=== PATIENT | female | born 1980 | race African-American/Black ===

== ENCOUNTER 2017-05-25 10:03 | Inpatient (IN) ==
[2017-05-25] MEDS ORDERED: OXYTOCIN/LR 20 UNIT/1,000 ML BAG IV ONE ×2 (10:25→15:30)
[2017-05-25] MEDS: LACTATED RINGERS 1,000 ML IV SCH ×4 (10:34→20:40)
[2017-05-25] MEDS ORDERED: ONDANSETRON 4 MG/2 ML VIAL IV PRN ×2 (11:10→15:30)
[2017-05-25] MEDS ORDERED: BUTORPHANOL 2 MG/ML VIAL IV PRN (11:10)
[2017-05-25 11:30] LABS: Basophils % 0.2 % (0.0-0.8); Eosinophils # 0.1 10*3/uL (0.0-0.87); Eosinophils % 1.3 % (0.00-10.9); Hematocrit 35.9 VOL% (35.7-47.0); Hemoglobin 12.1 GM/DL (12.0-16.0); Immature Granulocytes % 0.8 %; Immature Granulocytes Absolute 0.08 #; Lymphocytes # 1.1 10*3/uL (1.4-4.0); Lymphocytes % 11.4 % (21.3-54.2); Mean Corpuscular HGB Conc 33.7 GM/DL (32-36); Mean Corpuscular Hemoglobin 33 PG (27-34); Mean Corpuscular Volume 96.8 FL (87-102); Mean Platelet Volume 10.9 FL (9.6-12.0); Monocytes # 0.7 10*3/uL (0.11-0.8); Monocytes % 7.3 % (1.7-12.7); Neutrophils # 7.7 10*3/uL (1.4-7.4); Platelet Count 232 T/CUMM (130-400); Red Blood Count 3.71 MC/CUMM (3.8-5.5); Red Cell Distribution Width 13.9 % (9.3-17.3); White Blood Count 9.7 T/CUMM (4-12)
[2017-05-25] MEDS ORDERED: OXYTOCIN/LR 20 UNIT/1,000 ML BAG IV SCH (11:30)
[2017-05-25 12:13] LABS: Albumin 2.7 G/DL (3.4-5.0); Bilirubin,Total 0.5 MG/DL (0.2-1.0); Total Protein 6.4 G/DL (6.4-8.3)
[2017-05-25 12:14] LABS: Osmolality,Calculated 270.7 MOS/KG (273-304); Potassium 4.4 MMOL/L (3.5-5.1)
[2017-05-25] MEDS ORDERED: FAMOTIDINE 20 MG/2 ML VIAL IV ONE (12:20)
[2017-05-25] MEDS ORDERED: diphenhydrAMINE 50 MG/1 ML VIAL IV PRN (12:20)
[2017-05-25] MEDS ORDERED: fentaNYL 2 MCG/ROPIV 0.2% EPID 150 ML EPIDURAL SCH (12:20)
[2017-05-25] MEDS ORDERED: CITRIC ACID/SODIUM CITRATE 30 ML UDCUP PO ONE (12:20)
[2017-05-25] MEDS ORDERED: PROMETHAZINE 25 MG/1 ML VIAL IM ONE (12:20)
[2017-05-25] MEDS ORDERED: ePHEDrine 50 MG/ML AMP IV PRN (12:20)
[2017-05-25] MEDS ORDERED: ONDANSETRON 4 MG/2 ML VIAL IV ONE (12:20)
--- NOTE | 2017-05-25 14:41 | OB/GYN History & Physical ---
History of Present Illness Chief complaint: Contractions contractions History of present illness: Ms. Elmore is a 37 year old female At 39 weeks gestation who presented to the office with complaint of irregular uterine contractions. Patient was found to be 45 cm dilated and was sent to labor and delivery for evaluation. Home Medications Medication Instructions Recorded Confirmed Type Vits #90/Iron Fum/FA 1 each PO DAILY 11/23/16 05/25/17 History [ Formula Tablet] Iron Fum/Folic Acid/Mv,Min 15 1 tablet PO BID 05/21/17 05/25/17 History [Hemocyte Plus Capsule] Allergies Allergy/AdvReac Type Severity Reaction Status Date / Time No Known Allergies Allergy Unverified 11/23/16 06:47 12 point system: reviewed and no additional remarkable complaints except as stated Medical,Surgical,& Family Hx - Family History Family History: Reports;: Family Diabetes (FATHER,BROTHER) - Social History Smoking Status: Never smoker Frequency of Alcohol Use: None Type of Drug Use: None Exam DIAGNOSTIC ASSISTANT - Constitutional Vitals: Vital Signs Temp Pulse Resp BP 05/25/17 11:12 96.6 F L 86 20 122/67 General appearance: mild distress - Antepartum / Post Antepartum Exam Cervix - Dilatation: 8 cm Effacement: 80% Station: 0 Rupture: Artificial rupture of membranes with clear fluid Presentation: Vertex Heart Rate: 140s-150s with no decelerations [place]: Contractions every 2-4 minutes Abdomen obstetrics: Present: bowel sounds normal Vagina: Present: normal moisture Uterus exam: Present: normal size, normal contour Anus/Rectum: Present: normal perianal skin - Head Head exam: Present: normocephalic - ENT ENT exam: Present: normal exam - Neck Neck exam: Present: normal inspection - Respiratory Respiratory exam: Present: clear to auscultation bilaterally - Cardiovascular Cardiovascular exam: Present: regular rate and rhythm - GI/Abdominal GI/Abdominal exam: Present: normal bowel sounds, soft - Extremities Exam Extremities exam: Present: normal inspection - Back Exam Back exam: Present: normal inspection - Neurological Exam Neurological exam: Present: alert, oriented X3 - Psychiatric Psychiatric exam: Present: normal affect, normal mood - Skin Skin exam: Present: normal color, warm Assessment and Plan (1) 39 weeks gestation of Status: Acute Assessment and plan: patient in active labor with expected vaginal delivery Current Visit: Yes (2) Elderly multigravida in third trimester Status: Acute Current Visit: No Results - Labs CBC & BMP: 05/26/17 05:42 05/25/17 11:24 Quality Measures - VTE Contraindication to Pharmacological VTE Prophylaxis: Clinical assessment deems Pt at low risk, no prophalaxis needed
[2017-05-25] MEDS ORDERED: LIDOCAINE 1% 50 ML VIAL ONE (14:43)
[2017-05-25] MEDS ORDERED: miSOPROStol 200 MCG TABLET ONE (14:44)
[2017-05-25] MEDS ORDERED: METHYLERGONOVINE 0.2 MG/1 ML AMP ONE (14:44)
[2017-05-25] MEDS ORDERED: BISACODYL 10 MG SUPP RECTAL PRN (15:30)
[2017-05-25] MEDS ORDERED: oxyCODONE/ACETAMINOPHEN 5-325 MG TABLET PO PRN ×2 (15:30)
[2017-05-25] MEDS ORDERED: DIPH/TET/ACEL PERT BOOSTER VACCINE 0.5 ML VIAL IM ONE (15:30)
[2017-05-25] MEDS ORDERED: IBUPROFEN 800 MG TABLET PO PRN (15:30)
[2017-05-25] MEDS ORDERED: MEASLES/MUMPS/RUBELLA VACCINE 0.5 ML VIAL SUBCUT ONE (15:30)
[2017-05-25] MEDS ORDERED: WITCH HAZEL PADS 100/JAR TOP PRN (15:30)
[2017-05-25] MEDS ORDERED: BENZOCAINE 20%/MENTHOL 0.5% SPRAY 56 GM CAN TOP PRN (15:30)
[2017-05-25] MEDS ORDERED: RHO(D) IMMUNE GLOBULIN 300 MCG SYRINGE IM ONE (15:30)
[2017-05-25] MEDS ORDERED: ACETAMINOPHEN 325 MG TABLET PO PRN (15:30)
[2017-05-25] MEDS ORDERED: LANOLIN 50% CREAM 0.3 OZ TUBE TOP PRN (15:30)
[2017-05-25] MEDS ORDERED: HYDROCORTISONE 2.5% RECTAL CREAM 30 GM TUBE TOP PRN (15:30)
--- NOTE | 2017-05-25 15:32 | Operative Note ---
Date of procedure: 05/25/17 Procedure Preformed: Patient delivered a liveborn male infant via spontaneous vaginal delivery. Baby 's head was delivered in the LUZ position. The baby's nose mouth bulb suctioned the perineum. Anterior posterior shoulders followed by the body was delivered with ease. Status post internal after" was doubly clamped and cut. Cord blood was sent. Placenta was delivered spontaneously and intact with three -vessel cord. The uterus was massaged and was found to confirm a well contracted. The patient sustained first-degree vaginal laceration which was repaired with 2-0 chromic. Birthweight []. Apgars []. Baby and mother stable. And the procedure all sponge lap counts correct 2. Surgeon / Physician: Gaby Porter Post-op diagnosis: same Findings: Liveborn male Apgars 9 and 9 Specimens: none sent Estimated blood loss: other (100 mL) Condition: stable Anesthesia: local, epidural Disposition: floor
[2017-05-25] MEDS: DOCUSATE SODIUM 100 MG CAPSULE PO SCH (21:33)
[2017-05-26 06:28] LABS: Basophils % 0.2 % (0.0-0.8); Eosinophils # 0.1 10*3/uL (0.0-0.87); Hematocrit 29.4 VOL% (35.7-47.0); Hemoglobin 9.9 GM/DL (12.0-16.0); Immature Granulocytes % 0.7 %; Immature Granulocytes Absolute 0.09 #; Lymphocytes # 1.6 10*3/uL (1.4-4.0); Lymphocytes % 12.7 % (21.3-54.2); Mean Corpuscular HGB Conc 33.7 GM/DL (32-36); Mean Corpuscular Hemoglobin 33 PG (27-34); Mean Platelet Volume 11.5 FL (9.6-12.0); Monocytes % 8.1 % (1.7-12.7); Neutrophils # 9.5 10*3/uL (1.4-7.4); Neutrophils % 77.3 % (38.7-73.9); Platelet Count 200 T/CUMM (130-400); Red Blood Count 3.03 MC/CUMM (3.8-5.5); Red Cell Distribution Width 13.9 % (9.3-17.3); White Blood Count 12.3 T/CUMM (4-12)
--- NOTE | 2017-05-26 08:14 | OB/GYN Progress Note ---
Assessment and Plan (1) Vaginal delivery Status: Acute Assessment and plan: Routine care Current Visit: Yes TEAM GUIDE - PN: Subj Interval history: Patient doing well without complaints. Patient is bottlefeeding. We discussed breast-feeding and patient is encouraged to at least breast-feeding a try. Exam TEAM GUIDE - Constitutional Vitals: Vital Signs Temp Pulse Resp BP Pulse Ox 05/26/17 07:26 97.1 F L 102 H 20 118/74 98 05/26/17 05:39 20 05/26/17 03:36 98 F 98 H 18 112/72 99 05/25/17 23:44 98 F 100 H 18 106/62 98 05/25/17 22:00 18 05/25/17 20:00 98.7 F 106 H 20 133/84 99 05/25/17 18:36 99 H 20 110/61 05/25/17 18:10 98.6 F 99 H 20 134/74 05/25/17 11:12 96.6 F L 86 20 122/67 General appearance: no acute distress - Antepartum / Post Post Exam Abdomen obstetrics: Present: bowel sounds normal Vagina: Present: normal moisture Uterus exam: Present: normal size, normal contour Anus/Rectum: Present: normal perianal skin - Head Head exam: Present: normal inspection - Neck Neck exam: Present: normal inspection - Respiratory Respiratory exam: Present: clear to auscultation bilaterally - Cardiovascular Cardiovascular exam: Present: regular rate and rhythm - GI/Abdominal GI/Abdominal exam: Present: normal bowel sounds, soft, other (Uterus firm at the level of the umbilicus) - Extremities Exam Extremities exam: Present: normal inspection - Back Exam Back exam: Present: normal inspection - Neurological Exam Neurological exam: Present: alert, oriented X3 - Psychiatric Psychiatric exam: Present: normal affect, normal mood - Skin Skin exam: Present: normal color, warm Results - Labs CBC & BMP: 05/26/17 05:42 05/25/17 11:24
[2017-05-26] MEDS: DOCUSATE SODIUM 100 MG CAPSULE PO SCH ×2 (08:31→21:01)
--- NOTE | 2017-05-26 09:36 | Anesthesia Post-Op ---
Anesthesia Post OP - Post Ansesthetic Evaluation Patient seen in post op: Yes Resp: within normal limits CV: within normal limits Mental: within normal limits Temp: within normal limits [id number]: within normal limits Nausea and Vomiting: within normal limits Pain: within normal limits
--- NOTE | 2017-05-27 07:51 | Discharge Summary ---
Hospital Course - Hospital Course Hospital Course: This is a 37-year-old female at 39 weeks gestation admitted for induction of labor at term. Patient delivered a liveborn male via spontaneous vaginal delivery. Hospital course unremarkable by day #2 she was ready for discharge. Patient is bottlefeeding and plans for control pills for means of contraception Diagnosis - Discharge Diagnosis (1) 39 weeks gestation of Status: Acute (2) Elderly multigravida in third trimester Status: Acute Specialty Discharge - Follow Up or Referrals Follow up with: Gaby Porter MD [Physician] - Discharge Plan - Discharge Data Disposition: Disch To Home/Self Care Condition at Discharge: Stable Discharge Diet: advance to your usual diet Activity: resume usual activities as tolerated, other (Pelvic rest) Hygiene: may shower Weight Bearing at Discharge: weight bear as tolerated Driving: no restrictions Contact your physician if you experience:: fever over 101, Difficulty voiding, Redness or swelling, Nausea/Vomiting, Shortness of breath, Bleeding, pain uncontrolled by pain medications - Discharge Medications New Ibuprofen Tab [Motrin Tab] 800 mg PO Q6H PRN #30 tablet PRN Reason: Pain Moderate (4-7) No Action Iron Fum/Folic Acid/Mv,Min 15 [Hemocyte Plus Capsule] 1 tablet PO BID Vits #90/Iron Fum/FA [ Formula Tablet] 1 each PO DAILY - Follow Up or Referral Follow Up: Gaby Porter MD [Physician] - 1 Month - Forms/Instructions Instructions: Depression (GEN), Perineal Care (DC), Vaginal Delivery (DC), Bleeding (DC) Exam - Constitutional Vitals: Period Temp Pulse Resp BP Sys/Rodgers Pulse Ox Last 24 Hr 97.6 F-98.4 F 91-102 18-20 117-131/68-85 98-99 General appearance: no acute distress - Head Head exam: Present: normocephalic - Neck Neck exam: Present: normal inspection - Respiratory Respiratory exam: Present: clear to auscultation bilaterally - Cardiovascular Cardiovascular exam: Present: regular rate and rhythm - GI/Abdominal GI/Abdominal exam: Present: normal bowel sounds, soft, other (Uterus firm and well contracted approximately 1 fingerbreadth below the umbilicus) - Extremities Exam Extremities exam: Present: normal inspection - Back Exam Back exam: Present: normal inspection - Neurological Exam Neurological exam: Present: alert, oriented X3 - Psychiatric Psychiatric exam: Present: normal affect, normal mood - Skin Skin exam: Present: normal color, warm Discharge Results Procedures and tests throughout hospitalization: Pending Orders 05/25/17 11:10 Urinalysis Routine DS: Provider Date of admission: 05/25/17 15:30 Primary care physician: . No PCP Attending physician on admission: Gaby Porter MD Consults: 05/25/17 11:10 Consult to Anesthesiology [CONS] Routine Consulting Provider: Reason for Anesthesiology: Epidural Consult Comment: Epidural for pain managment 05/25/17 15:30 Consult to Charge Authorizer [CONS] Routine Consult Charge Authorizer: Breast Feeding Discharging clinician: Gaby Porter MD
[2017-05-27 07:55] VITALS: BP 105/67
[2017-05-27] MEDS: DOCUSATE SODIUM 100 MG CAPSULE PO SCH (08:56)
== END 2017-05-27 13:00 | disposition home or self-care (01) | DRG 560 ==
LOC: N.LDOUT 10:03 → N.LD 10:06 → N.OB 18:21
PROVIDERS: ADMIT Obstetrics & Gynecology; ATTEND Obstetrics & Gynecology

== ENCOUNTER 2017-07-20 11:58 | Inpatient (IN) ==
[2017-07-20 13:47] LABS: Basophils % 0.2 % (0.0-0.8); Eosinophils # 0.1 10*3/uL (0.0-0.87); Eosinophils % 0.7 % (0.00-10.9); Hematocrit 39.9 VOL% (35.7-47.0); Hemoglobin 13.2 GM/DL (12.0-16.0); Immature Granulocytes % 0.4 %; Immature Granulocytes Absolute 0.07 #; Lymphocytes # 1.5 10*3/uL (1.4-4.0); Lymphocytes % 8.5 % (21.3-54.2); Mean Corpuscular HGB Conc 33.1 GM/DL (32-36); Mean Corpuscular Hemoglobin 31 PG (27-34); Mean Corpuscular Volume 94.3 FL (87-102); Mean Platelet Volume 9.8 FL (9.6-12.0); Monocytes # 1.3 10*3/uL (0.11-0.8); Monocytes % 7.7 % (1.7-12.7); Neutrophils # 14.4 10*3/uL (1.4-7.4); Neutrophils % 82.5 % (38.7-73.9); Platelet Count 271 T/CUMM (130-400); Red Blood Count 4.23 MC/CUMM (3.8-5.5); Red Cell Distribution Width 12.8 % (9.3-17.3); White Blood Count 17.5 T/CUMM (4-12)
[2017-07-20 13:57] LABS: Apearance,Urine Slightly Hazy (Clear); Bacteria,Urine Occasional /HPF (Few); Bilirubin,Urine Negative (Negative); Blood, Urine Negative (Negative); Glucose,Urine (UA) Negative (Negative); Hyaline Casts,Urine 2 /LPF (0-3); Ketones,Urine Negative (Negative); Mucus,Urine Many /LPF (Occasional); Nitrite,Urine Negative (Negative); Protein,Urine 30 MG/DL; RBC,Urine <1 /HPF (0-4); Squamous Epithelial Cell,Urine Occasional /HPF (0-10); Urine Color Yellow (Yellow); Urine Specific Gravity 1.029 (1.001-1.035); Urine Urobilinogen < 2.0 EU/DL (0.2-1.0); WBC,Urine 2 /HPF (0-6)
[2017-07-20 14:01] LABS: Albumin 3.3 G/DL (3.4-5.0); Bilirubin,Total 0.9 MG/DL (0.2-1.0); Calcium 8.4 MG/DL (8.5-10.1); Osmolality,Calculated 273.5 MOS/KG (273-304); Potassium 4.1 MMOL/L (3.5-5.1); Total Protein 7.3 G/DL (6.4-8.3)
[2017-07-20] MEDS ORDERED: ONDANSETRON 4 MG/2 ML VIAL IV STA (14:34)
[2017-07-20] MEDS ORDERED: SODIUM CHLORIDE 0.9% 1,000 ML IV STA (14:34)
[2017-07-20] MEDS ORDERED: MORPHINE 2 MG/1 ML SYRINGE IV STA (14:34)
--- NOTE | 2017-07-20 14:37 | Emergency Department Note ---
Arrival - Arrival Chief Complaint: Abdominal / Flank Pain Stated Complaint: bad side pain ED Nursing Triage Note: c/o right side pain that started yesterday. denies having blood in urine or burning with urinating. Mode of Arrival: Ambulatory Limitations: No Limitations Source: Patient, RN Notes Reviewed Time Seen by Provider: 07/20/17 13:06 - History of Present Illness HPI Narrative: 37-year-old black female presents to ED with CC of: abdominal pain, constipation 1 day, had an episode of nausea vomiting yesterday, none since then Fever: no Keeping fluids down: yes Normal urine output: yes PCP: Dr. Goss PMHx: none Allergies/Adverse Reactions: Allergies Allergy/AdvReac Type Severity Reaction Status Date / Time No Known Allergies Allergy Unverified 07/20/17 12:15 Home Medications: Home Medications Medication Instructions Recorded Confirmed Type Ferrous Sulfate 325 mg PO DAILY 07/20/17 07/20/17 History HYDROcodone/ACETAMIN 7.5-325 1 tablet PO Q4H PRN #30 tablet 07/21/17 Rx [[place] 7.5-325] Review of System - Review of System Review of Systems: 12 point system: reviewed and no additional remarkable complaints except as stated Constitutional: Absent: Fever, chills,anorexia Cardiovascular: Absent: chest pain, dyspnea Respiratory: Absent: respiratory distress, wheezing, pain on inspiration Gastrointestinal: Present: as per HPI, abdominal pain, nausea, vomiting (1 yesterday), constipation. Absent: diarrhea, hematemesis, melena, hematochezia Medical,Surgical,& Family Hx - Medical History Medical History: noncontributory - Family History Family History: Reports;: Family Diabetes (FATHER,BROTHER) - Social History Smoking Status: Never smoker Frequency of Alcohol Use: None Type of Drug Use: None Exam Physical Examination: - General General appearance: alert, in no apparent distress - HEENT Present: atraumatic, normocephalic, normal inspection, PERRL, EOMI, mucous membranes moist - Neck Neck exam: Present: normal inspection, full ROM - Respiratory Respiratory exam: Present: normal lung sounds bilaterally - Cardiovascular Cardiovascular exam: Present: regular rate, normal rhythm, normal heart sounds - Abdominal Exam Abdominal exam: Present: soft, tenderness; right lower quadrant, moderate to severe, positive King sign, normal bowel sounds. Absent: distention, guarding , organomegaly, trauma, psoas sign, heel tap sign, mass - Extremities Exam Extremities exam: Present: normal inspection, full ROM. Absent: pedal edema, joint swelling, calf tenderness - Neurological Exam Neurological exam: Present: alert, oriented X3, no neuorosensory deficits - Psychiatric Psychiatric exam: Present: normal affect, normal mood - Skin Skin exam: Present: warm, dry, intact Vital Signs: Vital Signs Temperature 98.8 F 07/21/17 19:40 Pulse Rate 92 H 07/21/17 19:40 Respiratory Rate 20 07/21/17 19:40 Blood Pressure 116/76 07/21/17 19:40 O2 Sat by Pulse Oximetry 95 07/21/17 19:40 Course - Consultations Time: 16:30 (Dr. Shaver notified of patient presence and status. Will admit for surgery in the a.m.) Results - Labs CBC & BMP: 07/21/17 05:41 07/21/17 05:41 Lab Results: I have reviewed the patients labs Labs: Laboratory Tests 07/20/17 07/20/17 13:08 13:37 WBC 17.5 H RBC 4.23 Hgb 13.2 Hct 39.9 MCV 94.3 MCH 31 MCHC 33.1 RDW 12.8 Plt Count 271 MPV 9.8 Neut % (Auto) 82.5 H Lymph % (Auto) 8.5 L AST 32 ALT 40 Alkaline Phosphatase 100 Lipase 63.0 L Laboratory Tests 07/20/17 07/20/17 13:47 13:47 Urine Color Yellow Urine Appearance Slightly hazy Urine pH 5.0 Ur Specific [place] 1.029 Urine Protein 30 Urine Glucose (UA) Negative Urine Ketones Negative Urine Blood Negative Urine Nitrate Negative Urine Bilirubin Negative Urine Urobilinogen < 2.0 H Urine Leukocytes Trace Urine RBC <1 Urine WBC 2 Ur Squamous Epith Cells Occasional Urine Bacteria Occasional Hyaline Casts 2 Urine Mucus Many Ur Culture Indicated? Not indicated Urine Test Negative - Impressions CT abdomen and pelvis:Impression: 1. Acute, uncomplicated appendicitis 2. Cholelithiasis 3. Other findings as discussed above - Diagnostic Findings Procedure: CT Abdomen and Pelvis: report reviewed by me Disposition Clinical Impression: Acute appendicitis Case discussed with: patient Disposition: Still a Patient Condition: Stable New Prescriptions: Rx's Medication Instructions Recorded HYDROcodone/ACETAMIN 7.5-325 1 tablet PO Q4H PRN #30 tablet 07/21/17 [[place] 7.5-325] Time of Disposition: 16:30 (Admit.)
[2017-07-20] MEDS ORDERED: ONDANSETRON 4 MG/2 ML VIAL ONE (15:11)
--- NOTE | 2017-07-20 15:13 | CT Report ---
Exam: CT abdomen and pelvis with intravenous contrast Exam date: July 20, 2017 at 1442 hours Clinical History: 37-year-old female with severe right lower quadrant pain, nausea and vomiting Technique: Axial computed tomography images of the abdomen and pelvis with intravenous contrast. All CT scans at this facility use one or more dose reduction techniques. Automated exposure control, MA/KV adjustment per patient size (including targeted exam Square dose is matched to indication) or iterative reconstruction technique Contrast: 100 mL of Omnipaque 350 administered intravenously Comparison: No relevant prior studies Findings: Lower thorax: No acute pathologic findings at the lung bases Abdomen: Liver: Normal Gallbladder and bile ducts: Small calcified stones layering within a nondistended gallbladder. No ductal dilatation. Pancreas: Pancreas is normal. Spleen: Spleen is normal. Adrenals: No adrenal mass. Kidneys and ureters: Kidneys are normal in size, morphology and enhancement. No hydronephrosis. No ureteral calculus. Stomach and bowel: No evidence of acute gastritis, colitis or enteritis. No bowel obstruction. Moderate stool dispersed throughout the colon. Appendix: Dilated appendix with periappendiceal inflammatory changes measuring up to 1.0 cm in cross-section. No contained fluid collections within the abdomen to suggest abscess. No free intraperitoneal air to suggest perforation Pelvis: Bladder: Unremarkable Reproductive: Mild heterogeneity of the uterus, cannot exclude small intramural fibroids. Functional cyst arising from the left ovary Abdomen and pelvis: Intraperitoneal space: No pneumoperitoneum. No significant intraperitoneal fluid Bones/joints: No acute osseous abnormality Soft tissues: No mass Vasculature: No aortic aneurysm Lymph nodes: No adenopathy Impression: 1. Acute, uncomplicated appendicitis 2. Cholelithiasis 3. Other findings as discussed above PROCEDURE INTERPRETED AT [facility] DEPARTMENT OF RADIOLOGY Final Report Signed by: Louis James
[2017-07-20] MEDS ORDERED: MORPHINE 2 MG/1 ML SYRINGE ONE ×2 (15:15→15:24)
[2017-07-20] MEDS ORDERED: ONDANSETRON 4 MG/2 ML VIAL IV PRN (16:53)
[2017-07-20] MEDS ORDERED: BISACODYL 5 MG TABLET PO PRN (16:53)
[2017-07-20] MEDS ORDERED: ACETAMINOPHEN 325 MG TABLET PO PRN (16:53)
[2017-07-20] MEDS ORDERED: MORPHINE 2 MG/1 ML SYRINGE IV PRN (16:53)
[2017-07-20] MEDS ORDERED: KETOROLAC 15 MG/1 ML VIAL IV PRN (16:53)
[2017-07-20] MEDS ORDERED: ALUMINUM/MAGNES/SIMETH MAX STR 30 ML UDCUP PO PRN (16:53)
[2017-07-20] MEDS: PANTOPRAZOLE 40 MG VIAL IV SCH (18:22)
[2017-07-20] MEDS: LACTATED RINGERS 1,000 ML IV SCH (18:29)
[2017-07-20] MEDS: PIPERACILLIN/TAZOBACTAM 3,375 MG in SODIUM CHLORIDE 0.9% 100 ML IV SCH (19:08)
[2017-07-20] MEDS: DOCUSATE SODIUM 100 MG CAPSULE PO SCH (20:39)
[2017-07-20 21:45] LABS: Platelet Estimate Normal
[2017-07-21] MEDS: PIPERACILLIN/TAZOBACTAM 3,375 MG in SODIUM CHLORIDE 0.9% 100 ML IV SCH ×3 (01:38→18:37)
[2017-07-21] MEDS: LACTATED RINGERS 1,000 ML IV SCH ×3 (01:41→13:07)
--- NOTE | 2017-07-21 06:44 | EKG Report ---
Stationary ECG Study [facility] Test Date: 07/21/2017 6:42:52 AM Pat Name: PAUL SOLIS Department: Room: 343 Gender: F Train Gateman: WILMA : 1980 Requested by: Halima Mcginnis Order Number: [id number] Reading MD: YARIEL YA Intervals [place] Rate: 96 P: 38 DE: 157 QRS: 48 QRSD: 85 T: 10 QT: 348 QTc: 401 Interpretive Statements SINUS RHYTHM Electronically Signed On 07-21-17 16:19:26 CDT by YARIEL YA [email or web address]
[2017-07-21 06:52] LABS: Basophils % 0.3 % (0.0-0.8); Eosinophils # 0.3 10*3/uL (0.0-0.87); Eosinophils % 3.1 % (0.00-10.9); Hematocrit 33.8 VOL% (35.7-47.0); Immature Granulocytes % 0.4 %; Immature Granulocytes Absolute 0.04 #; Lymphocytes # 1.8 10*3/uL (1.4-4.0); Lymphocytes % 17.4 % (21.3-54.2); Mean Corpuscular HGB Conc 32.5 GM/DL (32-36); Mean Corpuscular Hemoglobin 31 PG (27-34); Mean Corpuscular Volume 95.2 FL (87-102); Mean Platelet Volume 10.2 FL (9.6-12.0); Monocytes # 0.9 10*3/uL (0.11-0.8); Monocytes % 8.3 % (1.7-12.7); Neutrophils # 7.3 10*3/uL (1.4-7.4); Neutrophils % 70.5 % (38.7-73.9); Platelet Count 242 T/CUMM (130-400); Red Blood Count 3.55 MC/CUMM (3.8-5.5); Red Cell Distribution Width 13.1 % (9.3-17.3)
[2017-07-21 07:06] LABS: White Blood Count 10.3 T/CUMM (4-12)
[2017-07-21 07:08] LABS: PT Patient Result 10.9 SECS; Partial Thromboplastin Time 33.1 SECS (0-40)
[2017-07-21 07:29] LABS: Albumin 2.7 G/DL (3.4-5.0); Bilirubin,Total 1.8 MG/DL (0.2-1.0); Magnesium 2.2 MG/DL (1.8-2.4); Osmolality,Calculated 276.4 MOS/KG (273-304)
--- NOTE | 2017-07-21 08:31 | XRay Report ---
2 view chest July 21, 2017 at 0726 hours Indication: Shortness of breath Comparison: Not available Findings: Cardiomediastinal contours are normal. Lungs are clear bilaterally. No acute osseous abnormalities. Visualized upper abdomen demonstrates no acute pathology. Impression: No acute cardiopulmonary findings PROCEDURE INTERPRETED AT [facility] DEPARTMENT OF RADIOLOGY Final Report Signed by: Louis James
[2017-07-21] MEDS: PANTOPRAZOLE 40 MG VIAL IV SCH (08:37)
--- NOTE | 2017-07-21 09:40 | General Surg History&Physical ---
Assessment and Plan (1) Acute appendicitis Status: Acute Assessment and plan: Patient is a 37-year-old female with acute appendicitis. Her leukocytosis has responded well to IV antibiotics. We will proceed with laparoscopic appendectomy today. The risks for post the procedure have been reviewed with patient including but not limited to injury to adjacent organs, wound healing complications, infection, bleeding, postoperative ileus, small bowel obstruction , adhesions, the need for additional procedures, pneumonia, pneumothorax, dysrhythmia, and other unforeseeable cardiac, pulmonary and/or logic events. The patient and her mother who is present expressed understanding of these risks and agree to proceed with surgical intervention today. Cholelithiasis incidentally noted. Based on his history, these are asymptomatic. Current Visit: Yes History of Present Illness Chief complaint: Right abdominal pain History of present illness: Ms. Elmore is a 37 year old female approximate two months with no significant past medical history who is admitted for acute appendicitis. She reports she began having right-sided abdominal pain approximately 4 or 5:00 on Thursday which progressively got worse. She initially had an episode of nausea vomiting, but she had no fevers, chills, rigors or diarrhea to note. Yesterday her pain persisted and she had no appetite report to the emergency department for evaluation. Acute appendicitis was identified she was admitted with IV antibiotics initiated for definitive evaluation and surgical intervention. She initially had leukocytosis which has now resolved. Her pain is improved but persistent. She reports no history of abdominal pain or knowledge of cholelithiasis; she denies any symptoms of biliary colic. Home Medications Medication Instructions Recorded Confirmed Type Ferrous Sulfate 325 mg PO DAILY 07/20/17 07/20/17 History Allergies Allergy/AdvReac Type Severity Reaction Status Date / Time No Known Allergies Allergy Unverified 07/20/17 12:15 Medical,Surgical,& Family Hx - Medical History HEENT: History of: Eye Problem (Glasses) Respiratory: History of: Asthma (Never has been diagnosed, but has an inhaler) Hematology: History of: Anemia (Takes Ferrous Sulfate) Reproductive: No history of: Complication - Surgical History Thoracic Surgeries: Patient denies;: Lobectomy Reproductive Surgeries: Patient denies;: Gynecologic Surgery (Post , 2 months) Orthopedic Surgeries: Surgical HX of;: Orthopedic Surgery (ORIF of ankle fracture) - Family History Family History: Reports;: Family Diabetes (FATHER,BROTHER), Additional Family History (Family history of blood clots, bleeding problems, or anesthesia complicatio) - Social History Smoking Status: Never smoker Frequency of Alcohol Use: None Type of Drug Use: None Exam - Constitutional Vitals: Period Temp Pulse Resp BP Sys/Rodgers Pulse Ox Last 24 Hr 97.7 F-98.4 F 84-98 17-20 96-123/62-74 96-100 General appearance: no acute distress, morbidly obese - Head Head exam: Present: atraumatic - Eye Eye exam: Absent: scleral icterus - Neck Neck exam: Present: trachea midline - Respiratory Respiratory exam: Present: clear to auscultation bilaterally - Cardiovascular Cardiovascular exam: Present: RRR - GI/Abdominal GI/Abdominal exam: Present: normal bowel sounds, rebound (Significant tenderness in the right lower quadrant), soft. Absent: distended - Extremities Exam Extremities exam: Absent: calf tenderness, edema - Neurological Exam Neurological exam: Present: alert, oriented X3 Speech: Present: normal - Constitutional Constitutional: Present: as per HPI - Cardiovascular Cardiovascular: Present: other (no Pedal edema). Absent: chest pain at rest, chest pain with activity, dyspnea, orthopnea - Respiratory Respiratory: Absent: cough, dyspnea, wheezing - Gastrointestinal Gastrointestinal: Present: as per HPI - Genitourinary Genitourinary: Absent: dysuria Quality Measures - VTE Contraindication to Pharmacological VTE Prophylaxis: Clinical assessment deems Pt at low risk, no prophalaxis needed Results - Labs CBC & BMP: 07/21/17 05:41 07/21/17 05:41 - Diagnostic Findings Procedure: CT Abdomen and Pelvis: image reviewed by me, report reviewed by me ( Acute appendicitis; cholelithiasis noted)
[2017-07-21] MEDS ORDERED: LIDOCAINE 1%/EPI INJ 20 ML VIAL ONE (10:24)
[2017-07-21] MEDS ORDERED: BUPIVACAINE MPF 0.25% /EPI 30 ML VIAL ONE (10:24)
[2017-07-21] MEDS ORDERED: ONDANSETRON 4 MG/2 ML VIAL ONE ×2 (11:47→12:04)
[2017-07-21] MEDS ORDERED: KETOROLAC 30 MG/1 ML VIAL ONE (11:47)
[2017-07-21] MEDS ORDERED: MIDAZOLAM 2 MG/2 ML VIAL ONE (11:47)
[2017-07-21] MEDS ORDERED: DESFLURANE 1 UNIT/15 MINUTE INH ONE (11:47)
[2017-07-21] MEDS ORDERED: PROPOFOL 200 MG/20 ML VIAL IV ONE (11:47)
[2017-07-21] MEDS ORDERED: GLYCOPYRROLATE 0.4 MG/2 ML VIAL ONE (11:47)
[2017-07-21] MEDS ORDERED: fentaNYL 100 MCG/2 ML VIAL ONE (11:47)
[2017-07-21] MEDS ORDERED: NEOSTIGMINE 10 MG/10 ML VIAL ONE (11:48)
[2017-07-21] MEDS ORDERED: ROCURONIUM 100 MG/10 ML VIAL IV ONE (11:48)
[2017-07-21] MEDS ORDERED: ONDANSETRON 4 MG/2 ML VIAL IV PRN (11:52)
[2017-07-21] MEDS ORDERED: HYDROmorphone 2 MG/1 ML VIAL IV PRN (11:52)
[2017-07-21] MEDS ORDERED: LACTATED RINGERS 1,000 ML IV SCH (12:00)
--- NOTE | 2017-07-21 13:07 | Operative Note ---
Date of procedure: 07/21/17 Pre-op diagnosis: Acute appendicitis Post-op diagnosis: same (Acute suppurative appendicitis) Procedure: Procedure performed: Laparoscopic appendectomy Procedure in detail: After informed consent was obtained, patient was taken operating suite lies upon the operating table. After general anesthesia was induced abdomen was prepped and draped in usual sterile fashion. After procedural pause local anesthetic infiltrated in skin and subcutaneous tissue above the umbilicus. Incision was made dissection carried down through skin and soft tissue. The fascia grasped with William's and elevated. Fascial incision was made in the abdominal cavity was entered bluntly. Finger sweep revealed no adhesions. Jeffrey trocar placed under direct visualization. Pneumoperitoneum achieved. Camera inserted and bowel mesentery inspected found to be free of any violation. Next patient was placed in Trendelenburg position rotated to the left. 5 mm trochars were placed in the suprapubic left lower quadrant under visualization. Can remove to the left lower quadrant. In the right lower quadrant the appendix was easily identified and appeared acutely suppurative. It was bluntly dissected away from the surrounding tissue and the appendix was grasped and elevated. A window was created in the mesentery at the base of the appendix and the appendiceal base was transected using a JUAN JOSE stapling device with vascular load. The mesoappendix transected in same fashion. The appendix was then placed in Endo Catch sac removed to the Jeffrey trocar site. Pneumoperitoneum reachieved. The right lower quadrant thoroughly irrigated and suctioned. Staple lines inspected found to be intact no leakage of succus or sanguinous appearing fluid. There was excellent hemostasis. The irrigant remained clear was all suctioned. The trochars were removed his abdomen desufflated. Fascia at the Jeffrey trocar site was closed using 0 Vicryl [id number] interrupted suture. Wounds were thoroughly irrigated and suction skin closed with katerina. Sterile dressings applied. Patient was extubated and taken recovery room in stable condition. All lap and needle counts were correct at the end of the case. Anesthesia: MALCOMA Surgeon / Physician: Ravi Shaver Estimated blood loss: other (Less than 10 cc) Specimens: other (Appendix) Condition: stable Disposition: PACU Results - Labs CBC & BMP: 07/21/17 05:41 07/21/17 05:41 Discharge Plan - Discharge Medications No Action Ferrous Sulfate 325 mg PO DAILY - Follow Up or Referral Follow Up: Ravi Shaver MD [Physician] - - Forms/Instructions
--- NOTE | 2017-07-21 13:15 | Discharge Summary ---
Hospital Course - Hospital Course Hospital Course: Patient is a 37-year-old female who was admitted with acute abdominal pain with associated with acute appendicitis and underwent laparoscopic appendectomy. Pathology was pending at the time of discharge. Ultimately, she was tolerating oral intake, activity, voiding without difficulty with sufficient pain management and oral analgesics. She was discharged home in good condition with follow with Dr. Shaver and postoperative instructions. Diagnosis - Discharge Diagnosis (1) Acute appendicitis Status: Acute Specialty Discharge - Follow Up or Referrals Follow up with: Ravi Shaver MD [Physician] - Discharge Plan - Discharge Data Disposition: Disch To Home/Self Care Condition at Discharge: Stable Discharge Diet: advance to your usual diet Activity: other (no lifting > 10 lb; avoid excessive perspiration) Hygiene: may shower (starting 2 days after surgery; do not soak or submerge wounds. pat wounds dry.) Driving: other (No driving or operating heavy machinery while taking narcotics) Contact your physician if you experience:: fever over 101, Redness or swelling, Nausea/Vomiting, Bleeding, pain uncontrolled by pain medications Wound / Dressing Care Instructions: Keep surgical incisions clean, dry and covered. Do not soak or submerge wounds. Pat was dry. - Discharge Medications New HYDROcodone/ACETAMIN 7.5-325 [[place] 7.5-325] 1 tablet PO Q4H PRN #30 tablet PRN Reason: Pain Moderate To Severe (4-10) Continue Ferrous Sulfate 325 mg PO DAILY - Follow Up or Referral Follow Up: Ravi Shaver MD [Physician] - 2 Weeks - Forms/Instructions Instructions: Laparoscopic Appendectomy (DC), Hydrocodone/Acetaminophen (By mouth) Exam - Constitutional Vitals: Period Temp Pulse Resp BP Sys/Rodgers Pulse Ox Last 24 Hr 97.7 F-99.9 F 75-106 16-21 96-137/62-75 95-100 Discharge Results Procedures and tests throughout hospitalization: Pathology of appendix pending Labs on day of discharge: Labs from last 24 hours 07/21/17 07/21/17 07/21/17 05:41 05:41 05:41 WBC 10.3 D RBC 3.55 L Hgb 11.0 L D Hct 33.8 L MCV 95.2 MCH 31 MCHC 32.5 RDW 13.1 Plt Count 242 MPV 10.2 Neut % (Auto) 70.5 Lymph % (Auto) 17.4 L Gage % (Auto) 8.3 Eos % (Auto) 3.1 Baso % (Auto) 0.3 Neut # (Auto) 7.3 Lymph # (Auto) 1.8 Gage # (Auto) 0.9 H Eos # (Auto) 0.3 Baso # (Auto) 0.0 Immature Gran % 0.4 Nucleated RBC % 0.0 Immature Gran # 0.04 Nucleated RBCs # 0.00 Platelet Estimate Immature Plt Fraction 0.0 Morphology Comment INR 1.0 PT Patient/Control Mix 10.9 Circ Anticoag PTT 33.1 Sodium 140 Potassium 4.0 Chloride 109 H Carbon Dioxide 25 Anion Gap 10.0 BUN 7 Creatinine 0.80 GFR Calculation 129 BUN/Creatinine Ratio 8.00 Glucose 91 Calculated Osmolality 276.4 Calcium 8.0 L Magnesium 2.2 Total Bilirubin 1.80 H AST 19 ALT 31 Alkaline Phosphatase 87 Total Protein 6.0 L Albumin 2.7 L Globulin 3.3 Albumin/Globulin Ratio 0.8 L Lipase Urine Color Urine Appearance Urine pH Ur Specific [place] Urine Protein Urine Glucose (UA) Urine Ketones Urine Blood Urine Nitrate Urine Bilirubin Urine Urobilinogen Urine Leukocytes Urine RBC Urine WBC Ur Squamous Epith Cells Urine Bacteria Hyaline Casts Urine Mucus Ur Culture Indicated? Urine Test 07/20/17 07/20/17 07/20/17 13:47 13:47 13:37 WBC 17.5 H RBC 4.23 Hgb 13.2 Hct 39.9 MCV 94.3 MCH 31 MCHC 33.1 RDW 12.8 Plt Count 271 MPV 9.8 Neut % (Auto) 82.5 H Lymph % (Auto) 8.5 L Gage % (Auto) 7.7 Eos % (Auto) 0.7 Baso % (Auto) 0.2 Neut # (Auto) 14.4 H Lymph # (Auto) 1.5 Gage # (Auto) 1.3 H Eos # (Auto) 0.1 Baso # (Auto) 0.0 Immature Gran % 0.4 Nucleated RBC % 0.0 Immature Gran # 0.07 Nucleated RBCs # 0.00 Platelet Estimate Normal Immature Plt Fraction 0.0 Morphology Comment INR PT Patient/Control Mix Circ Anticoag PTT Sodium Potassium Chloride Carbon Dioxide Anion Gap BUN Creatinine GFR Calculation BUN/Creatinine Ratio Glucose Calculated Osmolality Calcium Magnesium Total Bilirubin AST ALT Alkaline Phosphatase Total Protein Albumin Globulin Albumin/Globulin Ratio Lipase Urine Color Yellow Urine Appearance Slightly hazy Urine pH 5.0 Ur Specific [place] 1.029 Urine Protein 30 Urine Glucose (UA) Negative Urine Ketones Negative Urine Blood Negative Urine Nitrate Negative Urine Bilirubin Negative Urine Urobilinogen < 2.0 H Urine Leukocytes Trace Urine RBC <1 Urine WBC 2 Ur Squamous Epith Cells Occasional Urine Bacteria Occasional Hyaline Casts 2 Urine Mucus Many Ur Culture Indicated? Not indicated Urine Test Negative 07/20/17 13:08 WBC RBC Hgb Hct MCV MCH MCHC RDW Plt Count MPV Neut % (Auto) Lymph % (Auto) Gage % (Auto) Eos % (Auto) Baso % (Auto) Neut # (Auto) Lymph # (Auto) Gage # (Auto) Eos # (Auto) Baso # (Auto) Immature Gran % Nucleated RBC % Immature Gran # Nucleated RBCs # Platelet Estimate Immature Plt Fraction Morphology Comment INR PT Patient/Control Mix Circ Anticoag PTT Sodium 139 Potassium 4.1 Chloride 108 H Carbon Dioxide 27 Anion Gap 8.1 BUN 8 Creatinine 0.80 GFR Calculation 129 BUN/Creatinine Ratio 10.00 Glucose 83 Calculated Osmolality 273.5 Calcium 8.4 L Magnesium Total Bilirubin 0.90 AST 32 ALT 40 Alkaline Phosphatase 100 Total Protein 7.3 Albumin 3.3 L Globulin 4.0 H Albumin/Globulin Ratio 0.8 L Lipase 63.0 L Urine Color Urine Appearance Urine pH Ur Specific [place] Urine Protein Urine Glucose (UA) Urine Ketones Urine Blood Urine Nitrate Urine Bilirubin Urine Urobilinogen Urine Leukocytes Urine RBC Urine WBC Ur Squamous Epith Cells Urine Bacteria Hyaline Casts Urine Mucus Ur Culture Indicated? Urine Test - Imaging and Cardiology Procedure: CT Abdomen and Pelvis: image reviewed by me, report reviewed by me DS: Provider Date of admission: 07/20/17 16:31 Primary care physician: . No PCP Attending physician on admission: Ravi Shaver MD Consults: 07/20/17 16:51 Consult to Anesthesiology [CONS] Routine Consulting Provider: Reason for Anesthesiology: Pre-op Clearance Discharging clinician: Nelly Knight PA-C
[2017-07-21] MEDS: DOCUSATE SODIUM 100 MG CAPSULE PO SCH ×2 (15:24→21:31)
--- NOTE | 2017-07-21 16:21 | Anesthesia Post-Op ---
Anesthesia Post OP - Post Ansesthetic Evaluation Patient seen in post op: Yes Resp: within normal limits CV: within normal limits Mental: within normal limits Temp: within normal limits [id number]: within normal limits Nausea and Vomiting: within normal limits Pain: within normal limits
[2017-07-22] MEDS: LACTATED RINGERS 1,000 ML IV SCH ×2 (00:42→08:04)
[2017-07-22] MEDS: PIPERACILLIN/TAZOBACTAM 3,375 MG in SODIUM CHLORIDE 0.9% 100 ML IV SCH ×2 (02:48→09:39)
[2017-07-22] MEDS: PANTOPRAZOLE 40 MG VIAL IV SCH (08:12)
[2017-07-22] MEDS: DOCUSATE SODIUM 100 MG CAPSULE PO SCH (08:12)
--- NOTE | 2017-07-22 09:52 | Event Note ---
Patient is postop day #1 status post lap scopic appendectomy. She reports tolerating oral intake, pain controlled with oral analgesics, voiding without difficulty, passing flatus, and mobilizing without difficulty. She states she is ready for discharge this morning. Vital signs stable Heart regular rhythm Lungs clear to auscultation bilaterally Abdomen surgical dressings are clean, dry and intact. Abdomen is soft and appropriately tender postoperatively. No distention or peritoneal signs. Extremities: Calves are soft and nontender without pitting edema. Assessment and plan patient is postop day #1 status post laparoscopic appendectomy. Discharged this morning. Follow with Dr. Shaver as planned.
[2017-07-22 11:28] VITALS: BP 120/78
--- NOTE | 2017-07-22 12:26 | Pathology Report from [facility] ---
[facility] [place] [id number] PATIENT NAME : Georgina Elmore ORDERING DR : Ravi Shaver MD CLINICAL HX: Acute appendicitis POST-OP DX: Same SPECIMEN INFO: Appendix GROSS DESCRIPTION: The specimen is received in formalin labeled with the patients name and consists of an appendix measuring 9.0 x 1.0 cm. The serosa is smooth and erythematous. The lumen is patent. No fecaliths or perforations seen. Screening Technician sections submitted in one cassette. DIAGNOSIS FOR GEORGINA ELMORE: APPENDIX, APPENDECTOMY: Acute suppurative appendicitis. COLLECTED DATE: 07/21/2017 [facility] REPORT DATE: 07/22/2017 ELECTRONICALLY SIGNED BY: Dash Shanks M.D. 07/22/2017 - 9:17:03 [facility]
== END 2017-07-22 13:15 | disposition home or self-care (01) | DRG 225 ==
LOC: N.ED 11:58 → N.EDINP 16:31 → N.3E 17:52
PROVIDERS: ADMIT Surgery; ATTEND Surgery

== ENCOUNTER 2020-05-15 12:57 | Inpatient (IN) ==
[2020-05-15] MEDS ORDERED: BUTORPHANOL 1 MG/ML VIAL IV PRN (13:47)
[2020-05-15] MEDS ORDERED: BUTORPHANOL 2 MG/ML VIAL IV PRN (13:47)
[2020-05-15] MEDS ORDERED: ONDANSETRON 4 MG/2 ML VIAL IV ONE (13:51)
[2020-05-15] MEDS ORDERED: FAMOTIDINE 20 MG/2 ML VIAL IV ONE (13:51)
[2020-05-15] MEDS ORDERED: NALOXONE 0.4 MG/ML VIAL IV PRN (13:51)
[2020-05-15] MEDS ORDERED: PROMETHAZINE 25 MG/1 ML VIAL IM ONE (13:51)
[2020-05-15] MEDS ORDERED: LACTATED RINGERS 1,000 ML IV ONE (13:51)
[2020-05-15] MEDS ORDERED: CITRIC ACID/SODIUM CITRATE 30 ML UDCUP PO ONE (13:51)
[2020-05-15] MEDS ORDERED: hydrOXYzine HCL 25 MG/1 ML VIAL IM PRN (13:51)
[2020-05-15] MEDS ORDERED: diphenhydrAMINE 50 MG/1 ML VIAL IV PRN ×2 (13:51)
[2020-05-15] MEDS ORDERED: ePHEDrine 50 MG/ML VIAL IV PRN (13:51)
[2020-05-15] MEDS ORDERED: CITRIC ACID/SODIUM CITRATE 30 ML UDCUP ONE (14:00)
[2020-05-15] MEDS ORDERED: OXYTOCIN/LR 20 UNIT/1,000 ML BAG IV ONE (14:01)
[2020-05-15] MEDS: OXYTOCIN/LR 20 UNIT/1,000 ML BAG IV PRN (14:09)
[2020-05-15] MEDS: ONDANSETRON 4 MG/2 ML VIAL IV PRN (14:16)
[2020-05-15 14:24] LABS: Basophils % 0.2 % (0.0-0.8); Eosinophils # 0.1 10*3/uL (0.0-0.87); Eosinophils % 1.1 % (0.00-10.9); Hematocrit 30.7 VOL% (35.7-47.0); Hemoglobin 9.6 GM/DL (12.0-16.0); Immature Granulocytes % 2.3 %; Immature Granulocytes Absolute 0.22 #; Lymphocytes % 10.7 % (21.3-54.2); Mean Corpuscular HGB Conc 31.3 GM/DL (32-36); Mean Corpuscular Volume 95.6 FL (87-102); Mean Platelet Volume 11.5 FL (9.6-12.0); Monocytes % 10.2 % (1.7-12.7); NRBC # 0.09 10*3/uL; Neutrophils % 75.5 % (38.7-73.9); Platelet Count 225 T/CUMM (130-400); Red Blood Count 3.21 MC/CUMM (3.8-5.5); Red Cell Distribution Width 15.1 % (9.3-17.3); White Blood Count 9.7 T/CUMM (4-12)
[2020-05-15 14:32] LABS: Alanine Aminotransferase 30 U/L (13-56); Albumin 2.2 G/DL (3.4-5.0); Alkaline Phosphatase 148 U/L (45-117); Aspartate Amino Transferase 23 U/L (0-37); Bilirubin,Direct < 0.100 MG/DL (0.0-0.20); Bilirubin,Total < 0.39 MG/DL (0.2-1.0); Blood Urea Nitrogen 9 MG/DL (7-18); Calcium 8.3 MG/DL (8.5-10.1); Estimated Glom Filtration Rate 138 ML/MIN; Glucose 75 MG/DL (74-106); INR 0.9; Osmolality,Calculated 280.1 MOS/KG (273-304); PT Patient Result 9.9 SECS (9.8-11.9); Partial Thromboplastin Time 26.2 SECS (23.9-33.8); Total Protein 6.3 G/DL (6.4-8.3)
[2020-05-15] MEDS: LACTATED RINGERS 1,000 ML IV PRN ×2 (14:56→22:17)
[2020-05-15] MEDS: fentaNYL 2 MCG/ROPIV 0.2% EPID 100 ML EPIDURAL SCH ×2 (16:15→22:16)
[2020-05-15] MEDS ORDERED: miSOPROStoL 200 MCG TABLET ONE (17:24)
[2020-05-15] MEDS ORDERED: TRANEXAMIC ACID 1,000 MG/10 ML VIAL ONE (17:24)
[2020-05-15] MEDS ORDERED: CARBOPROST TROMETHAMINE 250 MCG/ML AMP IM ONE (17:25)
[2020-05-15] MEDS ORDERED: METHYLERGONOVINE 0.2 MG/1 ML AMP ONE (17:25)
[2020-05-15 18:06] LABS: Apearance,Urine CLEAR (Clear); Bilirubin,Urine Negative (Negative); Blood, Urine Negative (Negative); Glucose,Urine (UA) Negative (Negative); Ketones,Urine 20 mg/dL (Negative); Mucus,Urine Few /LPF (Occasional); Nitrite,Urine Negative (Negative); Protein,Urine 100 MG/DL; RBC,Urine 3 /HPF (0-4); Squamous Epithelial Cell,Urine Occasional /HPF (0-10); Urine Color Amber (Yellow); Urine Urobilinogen < 2.0 EU/DL (0.2-1.0); WBC,Urine <1 /HPF (0-6)
[2020-05-16] MEDS: ONDANSETRON 4 MG/2 ML VIAL IV PRN (00:28)
[2020-05-16] MEDS ORDERED: LIDOCAINE 1% 50 ML VIAL ONE (02:14)
[2020-05-16 02:56] LABS: Cord Arterial Blood HCO3 15.4 MMOL/L; Cord Venous Blood HCO3 18.7 MMOL/L; Cord Venous Blood PCO2 42.2 MMHG; Cord Venous Blood PO2 29.1
[2020-05-16] MEDS: OXYTOCIN/LR 20 UNIT/1,000 ML BAG IV PRN (04:30)
[2020-05-16] MEDS ORDERED: IBUPROFEN 800 MG TABLET PO PRN (07:15)
[2020-05-16] MEDS ORDERED: DIPH/TET/ACEL PERT BOOSTER VACCINE 0.5 ML VIAL IM ONE (08:50)
[2020-05-16] MEDS ORDERED: HYDROCORTISONE 2.5% RECTAL CREAM 30 GM TUBE TOP PRN (08:50)
[2020-05-16] MEDS ORDERED: WITCH HAZEL PADS 100/JAR TOP PRN (08:50)
[2020-05-16] MEDS ORDERED: LANOLIN 50% CREAM 0.3 OZ TUBE TOP PRN (08:50)
[2020-05-16] MEDS ORDERED: BISACODYL 10 MG SUPP RECTAL PRN (08:50)
[2020-05-16] MEDS ORDERED: BENZOCAINE 20%/MENTHOL 0.5% SPRAY 56 GM CAN TOP PRN (08:50)
[2020-05-16] MEDS ORDERED: oxyCODONE/ACETAMINOPHEN 5-325 MG TABLET PO PRN (08:50)
[2020-05-16] MEDS ORDERED: ACETAMINOPHEN 325 MG TABLET PO PRN (08:50)
[2020-05-16] MEDS: DOCUSATE SODIUM 100 MG CAPSULE PO SCH ×2 (09:09→20:58)
[2020-05-16] MEDS: oxyCODONE/ACETAMINOPHEN 5-325 MG TABLET PO PRN (13:01)
[2020-05-17] MEDS: oxyCODONE/ACETAMINOPHEN 5-325 MG TABLET PO PRN (03:30)
[2020-05-17 06:01] LABS: Basophils % 0.3 % (0.0-0.8); Eosinophils # 0.1 10*3/uL (0.0-0.87); Eosinophils % 1.1 % (0.00-10.9); Hematocrit 27.7 VOL% (35.7-47.0); Hemoglobin 8.7 GM/DL (12.0-16.0); Immature Granulocytes % 1.5 %; Immature Granulocytes Absolute 0.19 #; Lymphocytes # 1.3 10*3/uL (1.4-4.0); Lymphocytes % 10.1 % (21.3-54.2); Mean Corpuscular HGB Conc 31.4 GM/DL (32-36); Mean Corpuscular Volume 97.5 FL (87-102); Mean Platelet Volume 11.5 FL (9.6-12.0); Monocytes % 8.5 % (1.7-12.7); NRBC # 0.02 10*3/uL; Neutrophils % 78.5 % (38.7-73.9); Platelet Count 180 T/CUMM (130-400); Red Blood Count 2.84 MC/CUMM (3.8-5.5); Red Cell Distribution Width 15.9 % (9.3-17.3); White Blood Count 12.8 T/CUMM (4-12)
[2020-05-17] MEDS ORDERED: FERROUS SULFATE 325 MG TABLET PO SCH (09:00)
[2020-05-17] MEDS: DOCUSATE SODIUM 100 MG CAPSULE PO SCH (09:25)
[2020-05-17 11:36] VITALS: BP 114/84
== END 2020-05-17 15:08 | disposition home or self-care (01) | DRG 560 ==
LOC: N.LDOUT 12:57 → N.LD 13:00 → N.OB 05-16 08:32
PROVIDERS: ADMIT Obstetrics & Gynecology; ATTEND Obstetrics & Gynecology